=== PATIENT | male | born 1965 | race Caucasian/White ===

== ENCOUNTER → 2018-10-22 06:28 | Outpatient (CLI) | payer BC, SELFPAY ==
--- NOTE | 2018-10-22 06:30 | DI.MRI.S_ITS ---
PROCEDURE: MR LUMBAR SPINE WO CON INDICATIONS: HNP L5/S1 with LEFT LE RADIC TECHNIQUE: Noncontrast sagittal T1 spin echo and T2 fast echo, sagittal STIR, axial T1 and T2 fast spin echo through the lumbar spine. In cases with scoliosis, additional coronal T2 fast spin echo may be performed. COMPARISON: [facility], , L-SPINE WITHOUT CONTRAST, 08/22/2017, 16:33. FINDINGS: Image quality: Excellent. Alignment and Curvature: There is straightening of normal lumbar lordosis. No spondylolisthesis. Bone Marrow: Marrow is of normal overall signal. No acute vertebral body compression fractures. Spinal Cord: Conus medullaris terminates at the L1 level. Visualized cord demonstrates normal signal and size. Paraspinous Soft Tissues: No paravertebral masses. L1-L2: Normal appearance. L2-L3: Normal appearance. L3-L4: Mild disc desiccation with preserved disc height. Posterior disc bulge and bilateral facet arthrosis with hypertrophy of ligamentum flavum is again seen. Mild bilateral neural foramina narrowing is seen, and no significant central canal stenosis. This is essentially unchanged from previous study. L4-L5: There is broad-based disc bulge and bilateral facet arthrosis with hypertrophy of ligamentum flavum. Mild to moderate central canal stenosis and left worse than right bilateral neuroforaminal narrowing is seen. Bulging disc likely contacting exiting left L4 nerve root. Finding is unchanged or slightly worsened compared to previous study. L5-S1: There is central to right-sided disc herniation superimposed on broad-based disc bulge. Bilateral facet arthrosis is also seen. Mild central canal stenosis and bilateral neuroforaminal narrowing is seen. Finding has slightly progressed since previous study. Herniated disc likely contacting the right S1 nerve root. IMPRESSION: 1. Degenerative disc bulge and bilateral facet arthrosis at L3-4 through L5-S1 levels with mild central canal stenosis and bilateral neuroforaminal narrowing as described above, unchanged or slightly progressed compared to previous study in 2017. 2. No marrow edema. No acute compression fracture or traumatic spondylolisthesis. Dictated by: Les Harry M.D. on 10/22/2018 at 11:15 Approved by: Les Harry M.D. on 10/22/2018 at 11:27
== END ==
PROVIDERS: Family Provider Family Medicine; PCP Family Medicine; Referring Provider Physical Medicine & Rehabilitation; Visit Provider Physical Medicine & Rehabilitation
DX: M51.16 Intervertebral disc disorders with radiculopathy, lumbar region (principal); M51.17 Intervertebral disc disorders with radiculopathy, lumbosacral region; M48.061 Spinal stenosis, lumbar region without neurogenic claudication; M48.07 Spinal stenosis, lumbosacral region; M47.26 Other spondylosis with radiculopathy, lumbar region; M47.27 Other spondylosis with radiculopathy, lumbosacral region
CPT/HCPCS: 72148

== ENCOUNTER 2018-10-29 13:51 | Outpatient (CLI) | payer BC, SELFPAY ==
[2018-10-29] VITALS (8 sets, daily range): BP systolic 112–158; BP diastolic 72–92; PULSE 74–94; RESP 12–19; TEMP 36.5; O2SAT 96–99
--- NOTE | 2018-10-29 14:22 | DI.RAD.S_ITS ---
PROCEDURE: PAIN L/S TRANSFORAMINAL INJECT INDICATIONS: RADICULOPATHY FINDINGS: Fluoroscopic spot filming was performed to verify placement of spinal needles at the L5-S1 level(s), as labeled on the films. Appropriate location(s) of the needle tip(s) was confirmed by injection of iodinated contrast. Dictated by: Alberto Thomas M.D. on 10/29/2018 at 20:48 Approved by: Alberto Thomas M.D. on 10/29/2018 at 20:49
[2018-10-29] MEDS: MIDAZOLAM 5 MG/5 ML VIAL IV (14:35)
[2018-10-29] MEDS: IOPAMIDOL 15 ML VIAL 3 ML INJ (14:41)
[2018-10-29] MEDS: BUPIVACAINE 0.25% (PF) VIAL 2 ML INJ (14:41)
[2018-10-29] MEDS: methylPREDNISolone acetate 80 MG/ML VIAL INJ (14:42)
[2018-10-29] MEDS: DEXAMETHASONE 10 MG/ML VIAL 20 MG INJ (14:42)
--- NOTE | 2018-10-29 14:47 | PC.NURSE ---
pt tolerated procedure well. pt able to get off table without problems, transferred pt via wheelchair to preprocedure room to Sabine VASQUEZ for continued monitoring.
--- NOTE | 2018-10-29 14:56 | P.PCN_ITS ---
Procedures Date/Time Date of procedure: 10/29/18 Time of procedure: 14:55 General Procedure description: PREOP DIAGNOSIS 1. FORMAINAL STENOSIS WITH LE SYMPTOMS POST OP DIAGNOSIS 1. FORMAINAL STENOSIS WITH LE SYMPTOMS PROCEDURES 1. FLUOROSCOPICALLY GUIDED CONTRAST CONTROLLED TRANSFORAMINAL EPIDURAL STEROID INJECTION - Left L5/S1 PHYSICIAN: Bay Daniels DO INDICATIONS: Bay is referred for treatment of HNP with Left LE Symptoms FINDINGS Foraminal Nerve Root Compression secondary to disc disease and facet hypertrophy DESCRIPTION OF PROCEDURE: Following denial of allergy and review of potential side effects and complications, including, but not necessarily limited to, infection, allergic reaction, local tissue breakdown, stroke, temporary or permanent nerve injury, paralysis, and possible , the patient indicated that the patient understood and agreed to proceed. An informed consent document was signed by the patient, witnessed by a nurse, and placed in the patient's chart. Additionally, other treatment options including medications, modalities, and physical therapy were reviewed with the patient. After review of previous anaesthesic history and IV conscious sedation the patient was deemed safe to proceed with todays procedure with IV conscious sedation as ASA class II designation. Safety time-out was performed to confirm patient ID, procedure to be performed and site of procedure. IV sedation was accomplished with a combination of 5mg was administered by the RN after DO order , titrated to patient comfort during the course of the procedure while the patient remained responsive to all verbal commands In the prone position following sterile prep and drape of the lumbar region, the Left L5/S1 posterior neuroforamen was identified fluoroscopically. The skin was anesthetized via a 25-gauge 1.5-inch needle with 1% lidocaine solution. At this point, a 25-gauge 3.5-inch spinal needle was atraumatically introduced and advanced under fluoroscopic guidance through the posterior Left L5/S1 neuroforamen to approximately the anterior aspect of the canal. Depth was confirmed on lateral view. Following negative aspiration, injection of approximately 1.5 cc of Isovue 200 under live fluoroscopy in the AP view confirmed excellent flow along the nerve root, into the epidural space without vascular or intrathecal uptake observed Radiological data, including multiple fluoroscopic views of the lumbosacral spine, reveal a spinal needle at the Left L5/S1 posterior neuroforamen. Subsequent views show flow of contrast material flowing superiorly and inferiorly along the nerve root confirming epidural flow. Subsequently, a test dose of 1.5 cc of 1% lidocaine solution was administered and patient was observed for two minutes for signs or symptoms of complications , including abdominal pain, shortness of breath, bilateral upper or lower extremity weakness, nausea and vomiting, prior to steroid injection. At this point, a total of 3 cc or 20 mg of dexamethasone and 80mg Depo Medrol was injected without incident. The procedure tolerated the procedure well without signs or symptoms of complications prior to transfer to the recovery area continued monitoring without incident. The patient was then transferred to the recovery area where they were observed for an appropriate time after the injection. The patient reported a VAS score of 7 prior to the procedure and a post-procedure VAS of 0. Total Fluoroscopy Time: 20.9 seconds Total Conscious Sedation Time: 24min POST OP INSTRUCTIONS The patient was provided a Pain Log to continue to record their response to the target-specific procedure prior to follow-up visit with their referring physician. Additionally, specific post-injection care instructions and a contact number to our office were provided if concerns arise regarding possible complications associated with the procedure are suspected. Bay Daniels DO Complications: none
--- NOTE | 2018-10-29 14:57 | PC.NURSE ---
ACCEPTED CARE OF PT IN STABLE CONDITION IN POST PROC AREA.
--- NOTE | 2018-10-30 17:07 | PC.NURSE ---
Follow up call made for one day post injection. pt reports I'm doing a jig. He says he has one little hitch in my stride but it doesn't take much to get past it. He is very pleased with his results.
== END 2018-10-29 15:23 | disposition home or self-care (01) ==
LOC: RAD 13:51
PROVIDERS: Visit Provider Physical Medicine & Rehabilitation
DX: M48.07 Spinal stenosis, lumbosacral region (principal); M51.17 Intervertebral disc disorders with radiculopathy, lumbosacral region
CPT/HCPCS: 64483; 99152; J1040; J1100; J2250

== ENCOUNTER 2023-04-24 08:06 | Day surgery (SDC) | payer BC, SELFPAY ==
[2023-04-24 08:34] VITALS: BMI 29.5
[2023-04-24 08:51] VITALS: BP 146/86; PULSE 77; RESP 16; TEMP 36.3; O2SAT 99
[2023-04-24] MEDS: LACTATED RINGERS 1,000 ML 200 ML IV (08:54)
--- NOTE | 2023-04-24 09:08 | P.HP_ITS ---
History of Present Illness History of Present Illness Date Patient Seen: 04/24/23 Time Patient Seen: 09:08 Chief complaint: Colonoscopy Narrative: The patient presents for colorectal screening. They have never had any previous examination for such. No personal or family history of colon cancer. On further history denies any recent gastrointestinal symptoms. No nausea, vomiting, abdominal pain, loss of appetite, unexplained weight loss, change in bowel habits, or blood per rectum. [facility] Social History household members: spouse Smoking Status: Never smoker alcohol intake: current Meds Home Medications and Allergies Home Medications Medication Instructions Recorded Confirmed Type losartan 50 mg tablet 50 mg PO DAILY 04/24/23 04/24/23 History rosuvastatin 10 mg tablet 10 mg PO DAILY 04/24/23 04/24/23 History Allergies Allergy/AdvReac Type Severity Reaction Status Date / Time No Known Drug Allergies Allergy Verified 04/23/23 17:05 Exam Vital Signs (past 8 hours): - 04/24/23 08:51 Temperature 97.4 F L Pulse Rate 77 Respiratory Rate 16 Blood Pressure 146/86 H Pulse Oximetry 99 Oxygen Delivery Method Room Air Oxygen Delivery Method Room Air Narrative Exam Narrative: General adult man alert oriented no acute distress Abdomen soft nontender nondistended Extremities well perfused Assessment & Plan Assessment & Plan narrative: The patient requires colorectal screening and colonoscopy is recommended. Technical details were discussed. Risks, benefits, alternatives explained. Risks including but not limited to myocardial infarction, aspiration, bleeding, pain, missed lesion, incomplete examination, need for further radiographic studies, colonic perforation, and need for major abdominal surgery were discussed. All questions were answered to their satisfaction, and they are in agreement with this plan.
[2023-04-24 09:32] VITALS: BP 117/76; PULSE 72; RESP 12; TEMP 36.3; O2SAT 95
[2023-04-24 09:39] VITALS: BP 113/79; PULSE 69; RESP 16; O2SAT 95
--- NOTE | 2023-04-24 09:40 | PM.OP.COLON ---
Operative Date/Time/Diagnoses Date of procedure: 04/24/23 Time of procedure: 09:40 Pre-op diagnosis: Colorectal screening Post-op diagnosis: same Procedure & Clinicians Study performed: Colonoscopy Same procedure as scheduled: Yes Indications: Colorectal screening Surgeon: Ryan Chang Procedure Notes Procedure in detail: The history and physical was performed/updated and the patient is ASA class is 2. The procedure was discussed in detail with the patient. Potential risks complications including infection, bleeding, missed diagnosis, perforation, need for surgery, and were explained. Their questions were answered and informed consent was obtained. Patient was brought to the procedure room and placed standard monitoring equipment. The patient's vital signs were monitored continuously throughout the entire procedure. Prior to starting time-out was performed. The patient was placed in the left lateral recumbent position. Procedural sedation was administered by anesthesia. Examination began with a thorough inspection of the perianal area there was no evidence of fissures, fistulae, external hemorrhoids or cutaneous malignancy. The colonoscopy scope was then placed into the anal canal and was advanced to the cecum, which was identified by the ileocecal valve, the appendiceal orifice and the confluence of the taenia. The scope was then slowly withdrawn examining colon thoroughly in all directions, irrigating it of any residual stool. Mild diverticulosis within the sigmoid colon. No masses or polyps. Quality of prep fair. Internal hemorrhoids on retroflexion. The patient tolerated the procedure well. They will be discharged once criteria are met. . The withdrawl time was 7minutes. Specimen(s): none sent Impression: Normal colonoscopy Post-procedure Recommendations: Colonoscopy in 10 years and High fiber diet Disposition: same day surgery
[2023-04-24 09:44] VITALS: BP 116/83; PULSE 66; RESP 16; TEMP 36.4; O2SAT 95
== END 2023-04-24 09:59 | disposition home or self-care (01) ==
PROVIDERS: PCP Registered Nurse; Referring Provider Surgery; Visit Provider Surgery
PROC: 0DJD8ZZ Inspection of Lower Intestinal Tract, Via Natural or Artificial Opening Endoscopic (ICD-10-PCS; CPT 45378; principal; 2023-04-24 09:30)
DX: Z12.11 Encounter for screening for malignant neoplasm of colon (principal); K57.30 Diverticulosis of large intestine without perforation or abscess without bleeding; K64.8 Other hemorrhoids
CPT/HCPCS: 45378; J2704; J3010